=== PATIENT | male | born 1940 | race Caucasian/White ===

== ENCOUNTER → 2023-01-03 | Outpatient (REF) | payer MEDICARE | LOC: M SFHCDERM 14:14 | PROVIDERS: ATTEND Dermatology | DX: Z48.02 Encounter for removal of sutures (principal) ==

== ENCOUNTER → 2023-02-08 | Outpatient (REF) | payer MEDICARE | LOC: M SFHCDERM 17:33 | PROVIDERS: ATTEND Dermatology | DX: Z51.89 Encounter for other specified aftercare (principal); J03.90 Acute tonsillitis, unspecified ==